=== PATIENT | female | born 1995 | race Two or more races ===

== ENCOUNTER 2024-04-22 11:31 | Emergency (ER) | payer BC, MEDICAID ==
[~2024-04-22] VITALS: Ht 157.5 cm; Wt 105.5 kg
[2024-04-22] MEDS: SUMAtriptan SUCCINATE 6 MG/0.5 ML VL SC ONE (12:24)
[2024-04-22] MEDS ORDERED: AUG875T PO (13:07)
[2024-04-22] MEDS ORDERED: PRED20TA2 PO (13:07)
[2024-04-22] MEDS ORDERED: SUMA50TA2 PO (13:07)
[2024-04-22 13:15] VITALS: BP 148/93; PULSE 71; RESP 18; TEMP 97.6; O2SAT 98
== END 2024-04-22 13:16 | disposition home or self-care (01) ==
LOC: ER 11:31
DX: G43.009 Migraine without aura, not intractable, without status migrainosus (principal); J01.00 Acute maxillary sinusitis, unspecified
CPT/HCPCS: 70450; 96372; 99285; J3030